=== PATIENT | female | born 1980 | race Caucasian/White ===

== ENCOUNTER 2022-11-22 16:20 | Emergency (ER) | payer OTHER, SELFPAY ==
[2022-11-22 17:14] VITALS: BP 152/99; PULSE 75; RESP 20; TEMP 36.7; O2SAT 99; BMI 30.7
--- NOTE | 2022-11-22 17:44 | CRLHL7_ITS ---
For Patients: As a result of the Century Cures Act, medical imaging exams and procedure reports are released immediately into your electronic medical record. You may view this report before your referring provider. If you have questions, please contact your health care provider. Indication: Distal 4/5 metatarsal pain and swelling Technique: Right foot 2 views. Comparison: None Findings: Displaced obliquely oriented fracture distal 5th metatarsal diaphysis. Overlying soft tissue swelling. Remainder normal. Impression: Fifth metatarsal fracture. Dictated by Cody Saldaña MD @ 11/22/2022 7:17:40 PM (Electronically Signed)
--- NOTE | 2022-11-22 17:44 | ED_ITS ---
HPI - Extremity Injury (Lower) General Chief Complaint: Extremity Pain/Injury, Lower Stated Complaint: Fall From Standing/Foot Injury Time Seen by Provider: 11/22/22 16:45 History of Present Illness HPI Narrative: 42-year-old woman presenting to the emergency department accompanied by her with complaint of right foot area pain. 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 Did not hit her head there was no loss of conscious. No neck or back pain. Really only pain is her right foot area. Has not tried to bear weight really. Related Data Home Medications Medication Instructions Recorded Confirmed rosuvastatin 20 mg tablet 20 mg PO QPM 11/22/22 11/24/22 Previous Rx's Medication Instructions Recorded Knee Scooter- Adult #1 ea 11/23/22 Allergies Allergy/AdvReac Type Severity Reaction Status Date / Time No Known Drug Allergies Allergy Verified 11/23/22 17:18 Review of Systems Status of ROS: Reports: 6 or more systems reviewed and unremarkable except as noted in History and below [facility] Medical History Basal cell carcinoma ?C44.91 - Basal cell carcinoma of skin, unspecified (ICD-10) High blood cholesterol ?E78.00 - Pure hypercholesterolemia, unspecified (ICD-10) Social History Smoking Status: Never smoker Exam Narrative: Exam Narrative: Pleasant. NAD. Laughs easily. Does have a number of Telfa pads taped to her face consistent with recent Mohs procedure. Head otherwise appears to be a traumatic. Cranial nerves 2-12 intact. Neck is supple. Moving all extremities without difficulty but I have not tested her ambulatory ability. There is no injury to her knees. Examination of the right foot and ankle is without tenderness about the ankle. Mild discomfort to varus and valgus stress on the heel. Initially thought to have some tenderness to base of 5th metatarsal though on continued exam does have some mild swelling and bruising at the distal 5th maybe 4th metatarsal. No plantar bruising. I would have concerns of distal 5th metatarsal fracture. Const: Vital Signs, click to edit/add: Vital Signs - 24 hr 11/22/22 17:14 Temperature 98.1 F Pulse Rate [Pulse Oximeter] 75 Respiratory Rate 20 Blood Pressure [Ri ght Upper Arm] 152/99 H Pulse Oximetry 99 Oxygen Delivery Me thod Room Air Documenting provider has reviewed patient's vital signs: yes Course Vital Signs Vital signs: Initial Vital Signs Temperature 98.1 F 11/22/22 17:14 Temperature Source Temporal Artery Scan 11/22/22 17:14 Pulse Rate 75 11/22/22 17:14 Respiratory Rate 20 11/22/22 17:14 Blood Pressure 152/99 H 11/22/22 17:14 Blood Pressure Mean 116 H 11/22/22 17:14 Blood Pressure Position Sitting 11/22/22 17:14 Pulse Oximetry 99 11/22/22 17:14 Oxygen Delivery Method Room Air 11/22/22 17:14 Vital Signs Temperature 98.1 F 11/22/22 17:14 Pulse Rate 75 11/22/22 17:14 Respiratory Rate 20 11/22/22 17:14 Blood Pressure 152/99 H 11/22/22 17:14 Pulse Oximetry 99 11/22/22 17:14 Oxygen Delivery Method Room Air 11/22/22 17:14 Temperature 98.1 F 11/22/22 17:14 Pulse Rate 75 11/22/22 17:14 Respiratory Rate 20 11/22/22 17:14 Blood Pressure 152/99 H 11/22/22 17:14 Pulse Oximetry 99 11/22/22 17:14 Oxygen Delivery Method Room Air 11/22/22 17:14 MDM - Extremity Injury (Lower) MDM Narrative Medical decision making narrative: Apparent injury to distal right foot. Suspecting metatarsal fracture. X-rays ordered. Also given ice pack. My review there is a oblique fracture of the distal 5th metatarsal. There is some displacement to degree of which may require intervention. I am unable to provide short cam boot. I did discuss with Orthopedics. It sounds like it might be sufficient to place in stiff-soled sandal and allow for heel walking. Will also give crutches. Lives in [place] but has been in [facility] taking care of her parents usually 2 times a week. She will stay longer overnight till tomorrow to try to get an orthopedic appointment for consideration of surgical intervention or non operative area measures and potential cam boot placement . See patient discharge plan Discharge Plan Discharge Clinical Impression: Metatarsal fracture Patient Disposition: Home w/ Parent or Adult Condition: Stable Instructions: Crutch Instructions (ED), Foot Fracture in Adults (ED) Additional Instructions: Anticipate a call from orthopedics tomorrow for consultation and/or proper splint/boot. You can also reach out to them tomorrow morning at phone number [phone] Rest by using crutches. You can bear weight on your heel. Elevate for comfort. Ibuprofen, acetaminophen. Ice your foot to 3 times a day maybe strapping on the ice pack as discussed with an Torrey wrap as provided. Prescriptions: No Action (DME) Knee Scooter- Adult Misc See Rx Instructions .Route Qty: 1 0RF Rx Instructions: As directed rosuvastatin 20 mg tablet 20 mg PO QPM Follow Up/Referrals: Provider,Not a Local [Primary Care Provider] - Stand Alone Forms: MyHealth Info Instructions
== END 2022-11-22 20:15 | disposition home or self-care (01) ==
PROVIDERS: Emergency Provider Family Medicine
DX: S92.354A Nondisplaced fracture of fifth metatarsal bone, right foot, initial encounter for closed fracture (principal); X50.1XXA Overexertion from prolonged static or awkward postures, initial encounter; W19.XXXA Unspecified fall, initial encounter
CPT/HCPCS: 73620; 99283; 99284

== ENCOUNTER 2022-12-06 06:28 | Day surgery (SDC) | payer OTHER, SELFPAY ==
[2022-12-06] VITALS (10 sets, daily range): BP systolic 107–130; BP diastolic 64–91; PULSE 68–86; RESP 14–16; TEMP 36.3–37; O2SAT 94–100; BMI 31.1
--- NOTE | 2022-12-06 07:13 | W.ANESCHARGE ---
Anesthesia Charges Start Date/Time Anesthesia Start Date: 12/06/22 Anesthesia Start Time: 07:59 Stop Date/Time Anesthesia Stop Date: 12/06/22 Anesthesia Stop Time: 09:40
[2022-12-06] MEDS: SODIUM CHLORIDE 0.9 % (FLUSH) 10 ML SYRINGE IVF (07:30)
[2022-12-06] MEDS: LACTATED RINGERS 1000 ML 1,000 ML 100 ML IV (07:30)
--- NOTE | 2022-12-06 07:39 | SUR.PREOP ---
TIME?OUT:?0739 PT/RN/MDA?VERIFICATION?OF?SURGICAL?SITE,?PROCEDURE,?AND?CONSENT OBTAINED?PRIOR?TO?INVASIVE?PROCEDURE.
[2022-12-06] MEDS: MIDAZOLAM HCL 1 MG/ML inj IVP (07:42)
[2022-12-06] MEDS: fentaNYL 100 MCG/2 ML inj IVP (07:42)
--- NOTE | 2022-12-06 07:45 | CRLHL7_ITS ---
For Patients: As a result of the Cures Act, medical imaging exams and procedure reports are released immediately into your electronic medical record. You may view this report before your referring provider. If you have questions, please contact your health care provider. Indication: ORIF Right Foot 5th Metatarsal Technique: Three fluoroscopic images of the right foot. Fluoroscopic time 8 seconds. IMPRESSION: Fluoroscopic guidance for open reduction internal fixation of distal 5th metatarsal fracture. Dictated by Cody Saldaña MD @ 12/06/2022 9:55:58 AM (Electronically Signed)
--- NOTE | 2022-12-06 07:52 | W.PM.NB ---
Nerve Block Nerve Block Time Seen by Provider: 07:48 Date Seen: 12/06/22 Type of block requested by surgeon for post-operative analgesia: popliteal Side: right Time out performed: Yes Verification of patient name: Yes Verification of date of : Yes Site marking: site marked Name of person performing procedure: Yayo Continuous monitoring Was continuous monitoring of O2 sat, B/P, chrome worker, recorded every 15 minutes?: Yes Procedure Checklist: sterile prep, needles and gloves Ultrasound guided. Images saved: Yes Medications given in 5ml increments after negative aspiration: Ropivicaine %: 0.5 mL: 20 Needle gauge: 22 Patient tolerated procedure well: Yes Additional comments: Needle noted adjacent to nerve Block Charges Block Charge (with Pro Fee): Sciatic Nerve Use of Ultrasound Machine for Block: Yes- US Guidance/pain block
[2022-12-06 07:53] LABS: HCG Qualitative Serum* Negative (Negative)
--- NOTE | 2022-12-06 07:53 | W.PM.NB ---
Nerve Block Nerve Block Time Seen by Provider: 07:48 Date Seen: 12/06/22 Type of block requested by surgeon for post-operative analgesia: adductor canal Side: right Time out performed: Yes Verification of patient name: Yes Verification of date of : Yes Site marking: site marked Name of person performing procedure: Yayo Continuous monitoring Was continuous monitoring of O2 sat, B/P, monitor and storage bin tender, recorded every 15 minutes?: Yes Procedure Checklist: sterile prep, needles and gloves Ultrasound guided. Images saved: Yes Medications given in 5ml increments after negative aspiration: Ropivicaine %: 0.5 mL: 20 Needle gauge: 20 Patient tolerated procedure well: Yes Additional comments: Needle noted adjacent to nerve Block Charges Block Charge (with Pro Fee): Femoral Nerve Use of Ultrasound Machine for Block: Yes- US Guidance/pain block
[2022-12-06] MEDS: CEFAZOLIN 2 GM in 0.9 % SODIUM CHLORIDE Mini-bag 100 ML IVPB (08:10)
--- NOTE | 2022-12-06 09:13 | PM.ORPRC ---
Procedure Note Date of procedure: 12/06/22 Procedure: PREOPERATIVE DIAGNOSES: 1. Right 5th metatarsal fracture, closed, acute, significantly displaced, angulated, with comminution, extra-articular POSTOPERATIVE DIAGNOSES: 1. Right 5th metatarsal fracture, closed, acute, significantly displaced, angulated, with comminution, extra-articular NAME OF OPERATION: 1. Right 5th metatarsal open reduction internal fixation 2. 13928 - intraoperative fluoroscopy up to 1 hour. SURGEON: Randlal Rain MD DIRECTOR COMMUNITY [employer]ATION: Jer Mariscal PA-C ANESTHESIA: Popliteal block plus MAC IMPLANTS: Synthes mini frag 2.0 mm and 1.5 mm fully-threaded cortical screw (x 1 each) TOURNIQUET: 50 minutes at 250 torr INDICATIONS: The patient is a pleasant, 42-year-old female who sustained a right 5th metatarsal fracture recently. They were evaluated at a medical facility. X-rays revealed a fracture that was shortened and displaced. Given these findings and consistent with the patient's request, surgery was recommended to improve the position and stablize the fracture. FINDINGS: Right closed, displaced, shortened 5th metatarsal extra-articular comminuted angulated distal 1/3 fracture. PROCEDURE: Following a thorough discussion of risks, benefits, and alternatives, consent was obtained and the operative extremity was marked. The patient was brought to the operating room and placed supine on the operating table. Induction of anesthesia was achieved. Appropriate time out was performed identifying proper patient, site and procedure. 2 g IV Ancef was administered within 1 hour of incision preoperatively. The right lower extremity was prepped and draped in the appropriate sterile fashion using ChloraPrep prep. The limb was exsanguinated and the tourniquet inflated. A longitudinal incision was made overlying the affected metatarsal. Sharp incision through skin and blunt dissection through subcutaneous tissue allowed identification of crossing neurologic structures which were protected. The extensor digitorum was retracted dorsally. The periosteum was incised and subperiostealy elevated from the metatarsal. The fracture was encountered and cleared of interposed periosteum and fracture hematoma. The fracture was reduced and held with a pointed tenaculum. Fluoroscopy was utilized throughout the case. Here it confirmed improved position of the fracture. . At this stage, 2 interfragmentary screws were placed in a lag fashion technique. The 1st was a 2.0 mm screw. The 2nd was a 1.5 mm screw. This was dictated by the amount of space distal to the fracture. Excellent compression was achieved. Fluoroscopy confirmed the screws to be of appropriate length. Intraoperative fluoroscopy was utilized to help make decisions regarding fracture reduction, overall ray alignment relative to the adjacent rays, screw position and screw length, etc. At this stage, the wound was thoroughly irrigated with normal saline. Closure performed with 3-0 Vicryl for the periosteum reapproximation and synovial barrier over the extensor tendon, and for subcutaneous closure. 4-0 Monocryl for subcuticular closure. Tourniquet deflated, short-leg splint applied, and the patient woken from anesthesia and transferred the PACU in stable condition. PLAN: 1. Elevate operative extremity. 2. Ice, acetominphen or ibuprofen PRN. 3. Percocet for pain as needed. 4. Follow up with PA visit in 10-15 days for splint removal, wound check, and transition to short cam boot. Would recommend she remain nonweightbearing for a total of 3.5 weeks postop and then begin transitioning to weightbear as tolerated with the cam boot only.
--- NOTE | 2022-12-06 10:07 | W.ANESCHARGE ---
Anesthesia Charges Start Date/Time Anesthesia Start Date: 12/06/22 Anesthesia Start Time: 07:59 Stop Date/Time Anesthesia Stop Date: 12/06/22 Anesthesia Stop Time: 09:40
== END 2022-12-06 10:38 | disposition home or self-care (01) ==
PROVIDERS: Visit Provider Orthopaedic Surgery Sports Medicine
PROC: (CPT 28485; principal; 2022-12-06 07:45)
DX: S92.351A Displaced fracture of fifth metatarsal bone, right foot, initial encounter for closed fracture (principal)
CPT/HCPCS: 28485; 01480; 36415; 73630; 76942; 81025; 84703; A4580; C1713; J0690; J1100; J2250; J2405; J2704; J2795; J3010; J7120